=== PATIENT | female | born 1955 | race Caucasian/White ===

== ENCOUNTER 2020-01-23 00:54 | Outpatient (CLI) | payer MEDICARE, SELFPAY ==
[2020-01-23 21:18] LABS: SARS-CoV-2 RNA PCR Negative
== END 2020-01-23 00:55 | disposition home or self-care (01) ==
LOC: ANHCOVIDDT 00:54
PROVIDERS: PCP Internal Medicine; Visit Provider Internal Medicine Gastroenterology
DX: Z01.812 Encounter for preprocedural laboratory examination (principal); Z20.828 Contact with and (suspected) exposure to other viral communicable diseases
CPT/HCPCS: 87635; C9803; U0003

== ENCOUNTER 2020-01-26 01:07 | Day surgery (SDC) | payer MEDICARE, SELFPAY ==
[2020-01-20 13:20] VITALS: BMI 37.2
--- NOTE | 2020-01-25 11:51 | WPDANESEPPF ---
Anes - Initial Pre Proc Eval Procedure: Operation Date: 01/26/20 08:30 Proposed Procedures p Screening Colonoscopy - Kahlil Mendoza MD Date/Time: 01/25/20 11:51 Surgeon: Kahlil Mendoza MD Pre Op Diagnosis: neoplasm screening, family hx colon CA Patient Data Age: 64 Gender: F Height: 1.57 m Weight: 92.3 kg Allergies Allergy/AdvReac Type Severity Reaction Status Date / Time No Known Allergies Allergy Mild Verified 01/26/20 07:17 Home Medications Medication Instructions Recorded Confirmed Type raloxifene 60 mg tablet 60 mg PO DAILY 09/01/19 01/20/20 History simvastatin 40 mg tablet 40 mg PO DAILY #90 tablet 10/02/19 01/20/20 Rx azelastine-fluticasone 137 mcg-50 1 spray INTRANASAL BID 01/04/20 01/20/20 History mcg/spray nasal spray calcium carbonate 500 mg calcium 500 mg PO DAILY 01/04/20 01/20/20 History (1,250 mg) tablet cetirizine 10 mg tablet 10 mg PO DAILY PRN tablet 01/04/20 01/20/20 History cholecalciferol (vitamin D3) 10 10 mcg PO DAILY 01/04/20 01/20/20 History mcg (400 unit) capsule losartan 100 mg tablet 100 mg PO DAILY 01/04/20 01/20/20 History omega-3 fatty acids 1,000 mg 2,000 mg PO BID cap 01/04/20 01/20/20 History capsule Patient hx anesthesia problems: none Family hx anesthesia problems: none PMFSH Past Medical History Medical History (Updated 01/18/20 @ 11:39 by China Kunz CMA) BMI 39.0-39.9,adult Body mass index (BMI) 40.0-44.9, adult Chronic congestion of paranasal sinus Encounter for routine adult health examination without abnormal findings Follow up IGT (impaired glucose tolerance) 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 Other specified abnormal findings of blood chemistry Sinus drainage Vitamin D deficiency Family History Family History Other Carcinoma of colon Social History Social History Smoking status: Never smoker Second hand tobacco smoke exposure: No Alcohol intake: unknown Substance use: never Substance use type: unknown Living arrangements: with family Spiritual care concerns: No Anes - Eval Final PreProcedure Day of Procedure 01/25/20 11:51 Patient weight: obese Heart: regular rate and rhythm Lungs: clear to auscultation and normal air movement Airway: Mallampati scale class III Neurological: alert and oriented Last oral intake: >/= 8 hours ASA classification: III Emergent: no Anesthetic plan: proceed Anesthesia type and monitoring: general GIVS and standard monitoring Informed Consent: The patient's anesthetic plan and its attendant risks and benefits were discussed with the patient/family/POA. Questions were solicited and answers provided to the satisfaction of the patient/family/POA.
[2020-01-26 07:19] VITALS: BP 186/89; PULSE 82; RESP 20; TEMP 36.6; O2SAT 97; BMI 36.4
[2020-01-26] MEDS: LACTATED RINGERS 1,000 ML 150 ML IV CONT (07:39)
--- NOTE | 2020-01-26 07:54 | WPDGICN ---
Assessment and Plan Assessment and plan (1) Family history of colon cancer: Code(s): Z80.0 - Family history of malignant neoplasm of digestive organs Status: Acute Assessment and Plan: Patient's mother and a maternal uncle both had colon cancer. Plan is for patient to have surveillance colonoscopy now and consider this at 5 year intervals in the future. GI Consult Note Consult date/time: 01/26/20 07:54 HPI: Hedy Haas is a 64 year old female seen in evaluation at the request of Dr. Jamilah Damico. patient presents for screening colonoscopy. Family history is significant her mother and maternal uncle both have had colon cancer. Patient states that her own weight appetite bowel movements are normal. Patient denies abdominal pain. She has had no bleeding. Her weight has remained stable. She presents today for screening colonoscopy. 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 Other specified abnormal findings of blood chemistry Sinus drainage Vitamin D deficiency Family History Family History Other Carcinoma of colon Social History Social History Smoking status: Never smoker Second hand tobacco smoke exposure: No Alcohol intake: unknown Substance use: never Substance use type: unknown Living arrangements: with family Spiritual care concerns: No Meds Home Medications and Allergies Home Medications Medication Instructions Recorded Confirmed Type raloxifene 60 mg tablet 60 mg PO DAILY 09/01/19 01/20/20 History simvastatin 40 mg tablet 40 mg PO DAILY #90 tablet 10/02/19 01/20/20 Rx azelastine-fluticasone 137 mcg-50 1 spray INTRANASAL BID 01/04/20 01/20/20 History mcg/spray nasal spray calcium carbonate 500 mg calcium 500 mg PO DAILY 01/04/20 01/20/20 History (1,250 mg) tablet cetirizine 10 mg tablet 10 mg PO DAILY PRN tablet 01/04/20 01/20/20 History cholecalciferol (vitamin D3) 10 10 mcg PO DAILY 01/04/20 01/20/20 History mcg (400 unit) capsule losartan 100 mg tablet 100 mg PO DAILY 01/04/20 01/20/20 History omega-3 fatty acids 1,000 mg 2,000 mg PO BID cap 01/04/20 01/20/20 History capsule Allergies Allergy/AdvReac Type Severity Reaction Status Date / Time No Known Allergies Allergy Mild Verified 01/26/20 07:17 Vital Signs Vital Signs - 24 hr 01/26/20 07:19 Temperature 97.9 F Pulse Rate 82 Respiratory Rate 20 Blood Pressure 186/89 H Pulse Oximetry 97 Exam Narrative: Exam Narrative: Physical exam reveals patient to be alert. Vital signs stable. HEENT exam unremarkable. Lungs are clear to auscultation and percussion heart is without murmur or extra sounds. Abdominal exam bowel sounds are present abdomen is soft nontender with no organomegaly. Digital external rectal exam is normal.
[2020-01-26] MEDS: SIMETHICONE ORAL SUSPENSION 20 MG/0.3 ML 30 ML BOTTLE 0.6 ML IRRIGATION (08:37)
[2020-01-26 08:48] VITALS: BP 143/44; PULSE 74; RESP 18; O2SAT 97
[2020-01-26 08:58] VITALS: BP 173/92; PULSE 74; RESP 20; O2SAT 97
[2020-01-26 09:08] VITALS: BP 182/95; PULSE 74; RESP 20; O2SAT 97
--- NOTE | 2020-01-26 09:18 | SUR.PHASEII ---
PT BP high, but back to pre-op baseline. Asymptomatic. Pt stated she has not take BP med today. Agrees to take bp med when she gets home. Keyla Yip CRNA made aware.
== END 2020-01-26 09:21 | disposition home or self-care (01) ==
PROVIDERS: PCP Internal Medicine; Visit Provider Internal Medicine Gastroenterology
PROC: 0DJD8ZZ Inspection of Lower Intestinal Tract, Via Natural or Artificial Opening Endoscopic (ICD-10-PCS; CPT 45378; principal; 2020-01-26 08:30)
DX: Z12.11 Encounter for screening for malignant neoplasm of colon (principal); K64.8 Other hemorrhoids; Z80.0 Family history of malignant neoplasm of digestive organs; Z83.71 Family history of colonic polyps; G47.33 Obstructive sleep apnea (adult) (pediatric); E55.9 Vitamin D deficiency, unspecified
CPT/HCPCS: G0105; J2704; J7120

== ENCOUNTER 2022-01-31 13:00 | Outpatient (CLI) | payer MEDICARE, SELFPAY ==
--- NOTE | ~2022-01-31 | CT_ITS ---
EXAMINATION:CT chest high resolution wo ut DATE: 01/31/2022 14:33 INDICATION: Chronic cough. Shortness of breath. TECHNIQUE: Computed tomography (CT) of the chest was performed without intravenous contrast. Automate d exposure control and iterative reconstruction technique were employed. The dose-length product (DLP ) was 490.87 mGy-cm. COMPARISON: Chest 2 views 02/18/2013 FINDINGS: The lungs demonstrate mild atelectasis. No bronchiectasis or honeycombing. No pleural effus ion. The heart size is normal. There are coronary artery calcifications. No pericardial effusion. The re is diffuse hepatic steatosis. There is moderate thoracic spondylosis. IMPRESSION: 1. Mild dependent atelectasis in the lungs. Reviewed, dictated and finalized at location [facility]. [facility]
--- NOTE | 2022-01-31 16:12 | WPDPFTINT ---
PFT Procedure Performed PFT Procedure Performed Spirometry with Pre/Post Bronchodilator Plethysmography (Lung Vol) Diffusing Cap (DLCO) Flow Vol Loop PFT Interpretation This is a pulmonary function test with pre and post-bronchodilator spirometry, plethysmography and diffusing capacity. The test was performed and results interpreted in accordance with the 2019 and 2005 ATS/ERS Task Force guidelines respectively using the Global Lung Function Initiative-2012 reference equations. Patient demonstrated good effort and cooperation. Reproducibility criteria were met. The quality of the pre bronchodilator spirometry maneuver was Grade A and post bronchodilator spirometry maneuver was Grade A. Findings: Spirometry: The contour the inspiratory and expiratory flow tracing are normal. The pre bronchodilator FVC is 2.48 L, 91% predicted. The pre bronchodilator FEV1 is 1.93 L, 91% predicted. The pre bronchodilator FEV1: FVC ratio 78%. The post bronchodilator FVC is 2.52 L, representing a 2% increase. The post bronchodilator FEV1 is 1.96 L, representing a 2% increase. The post bronchodilator FEV1: FVC ratio 78%. Plethysmography: The total lung capacity is 3.57 L, 76% predicted. The functional residual capacity is 1.26 L, 47% predicted. The residual volume is 1.09 L, 54% predicted. Diffusing capacity: The diffusing capacity unadjusted for hemoglobin and carboxyhemoglobin is 16.2, 81% predicted. The diffusing capacity adjusted for alveolar volume is 4.91, 111% predicted. Impression: There is a mild restrictive ventilatory abnormality with a normal FEV1. The spirometry is normal without evidence of an obstructive abnormality. There is no significant improvement after inhaling a single dose of albuterol. The diffusing capacity is normal. There are no prior studies for comparison
== END 2022-01-31 13:01 | disposition home or self-care (01) ==
LOC: ANHPFT 13:02
PROVIDERS: PCP Internal Medicine; Visit Provider Internal Medicine
DX: R06.02 Shortness of breath (principal); R05.3 Chronic cough; J98.11 Atelectasis; R94.2 Abnormal results of pulmonary function studies
CPT/HCPCS: 71250; 94060; 94726; 94729

== ENCOUNTER 2022-12-10 07:43 | Outpatient (CLI) | payer MEDICARE, SELFPAY ==
--- NOTE | ~2022-12-10 | CT_ITS ---
EXAMINATION: CT sinus wo con DATE: 12/10/2022 08:03 INDICATION: Chronic cough TECHNIQUE: Computed tomography (CT) of the paranasal sinuses was performed without contrast. Iterativ e reconstruction technique was employed. Exam dose: 329.94 mGy-cm total exam DLP. COMPARISON: 04/25/2014 CT sinuses FINDINGS: There is rightward bowing of the nasal septum. Intralamellar cell of both middle nasal turbinates and renato bullosa of right middle nasal turbinate . Moderate soft tissue swelling of the nasal turbinates. The ostiomeatal units are patent bilaterally. There are bilateral impacted upper wisdom teeth, with periapical abscess of the right upper molar adj acent to the wisdom tooth. There is mild mucoperiosteal thickening in the lower right maxillary sinus itis and more prominent mucoperiosteal thickening throughout much of the left maxillary sinus. The paranasal sinuses otherwise are normally developed and aerated. The mastoid air cells are well-developed and aerated bilaterally. Middle and inner ear apparatus appear normal bilaterally. Incidental finding of hyperostosis frontalis interna, not likely of any clinical significance. IMPRESSION: Rightward bowing of the nasal septum. Intralamellar cell of both middle nasal turbinates Renato bullosa of right middle nasal turbinate Moderate soft tissue swelling of the nasal turbinates Bilateral maxillary sinus mucoperiosteal thickening, left greater than right Reviewed, dictated and finalized at [facility]. Reviewed, dictated and finalized at location [facility].
== END 2022-12-10 07:44 | disposition home or self-care (01) ==
PROVIDERS: PCP Internal Medicine; Visit Provider Internal Medicine
DX: R05.3 Chronic cough (principal); J34.89 Other specified disorders of nose and nasal sinuses; R60.9 Edema, unspecified
CPT/HCPCS: 70486